=== PATIENT | female | born 1970 | race Caucasian/White ===

== ENCOUNTER 2018-05-16 15:23 | Emergency (ER) | payer BC ==
[2018-05-16 15:29] VITALS: BP 120/78; PULSE 67; TEMP 98.6; BMI 27.4
[2018-05-16] MEDS ORDERED: DIPHTH,PERTUSS(ACELL),TET 0.5 ML DISP.SYRIN IM ONE (15:43)
--- NOTE | 2018-05-16 15:48 | PDOC ---
History of Present Illness - General Chief Complaint: Laceration Stated Complaint: RT FINGER LACERATION Time Seen by Provider: 05/16/18 15:32 - History of Present Illness Initial Comments: 47-year-old female with a history of migraines on Topamax presents for evaluation after removing a piece of glass from her right second finger. She applied direct pressure controlled bleeding and came to the emergency room. She is not current on tetanus. 05/16/18 15:46 Past History - Past Medical History Allergies/Adverse Reactions: Allergies Allergy/AdvReac Type Severity Reaction Status Date / Time ibuprofen [From Advil] Allergy Swelling Verified 05/16/18 15:27 Home Medications: Ambulatory Orders Topiramate [Topamax] 25 mg PO DAILY 12/30/15 Psychiatric Problems: Yes - Surgical History Abdominal Surgery: Yes - Immunization History Td Vaccination: Yes - Suicide/Smoking/Psychosocial Hx Smoking Status: No Smoking History: Never smoked Have you smoked in the past 12 months: No Number of Cigarettes Smoked Daily: 0 Information on smoking cessation initiated: No Hx Alcohol Use: No Drug/Substance Use Hx: No Substance Use Type: None Hx Substance Use Treatment: No Review of Systems - Review of Systems Integumentary: Yes: See HPI All Other Systems: Reviewed and Negative *Physical Exam - Vital Signs Last Vital Signs Temp Pulse Resp BP Pulse Ox 98.6 F 67 18 120/78 100 05/16/18 15:25 05/16/18 15:25 05/16/18 15:25 05/16/18 15:25 05/16/18 15:25 - Physical Exam Comments: There is a small superficial excoriation on the radial aspect of the right second finger at the tip on the skin overlying the distal phalanx. There are no gross sensorimotor deficits in the finger she's neurovascularly intact. She has no sensitivity to the area. 05/16/18 15:46 ED Treatment Course - RADIOLOGY Radiology Studies Ordered: Category Date Time Status FINGER(S) RIGHT [RAD] Stat Radiology 05/16/18 15:43 Ordered Medical Decision Making - Medical Decision Making This wound does not have to be sutured it can be treated with dressing changes and a sterile Band-Aid multiple times a day and left open to air when she is not active. I'll get an x-ray to evaluate for a foreign body. And update her tetanus today. 05/16/18 15:47 05/16/18 15:53 Do not appreciate a radiopaque foreign body on radiograph today. *DC/Admit/Observation/Transfer Diagnosis at time of Disposition: Laceration - Discharge Dispostion Disposition: HOME Condition at time of disposition: Stable Decision to Admit order: No - Referrals Referrals: Mukund Robledo MD [Staff Physician] - - Patient Instructions Additional Instructions: Your wound does not require sutures. Your tetanus was updated today. Return to the emergency room should you experience any increased redness pain or swelling. In the meantime he can follow-up with hand surgery for further evaluation and treatment options. And water if your activity may put a Band-Aid over the area to protect it otherwise he may be left open to air. - Post Discharge Activity
== END 2018-05-16 15:55 | disposition home or self-care (01) ==
LOC: JERFT 15:23
PROC: 3E0234Z Introduction of Serum, Toxoid and Vaccine into Muscle, Percutaneous Approach (ICD-10-PCS; principal; 2018-05-16)
DX: S61.211A Laceration without foreign body of left index finger without damage to nail, initial encounter (principal); W25.XXXA Contact with sharp glass, initial encounter; Y93.89 Activity, other specified; Y92.038 Other place in apartment as the place of occurrence of the external cause; Y99.8 Other external cause status
CPT/HCPCS: 73140-TC-RT-FY; 90715; 99281-25

== ENCOUNTER 2018-09-02 18:44 | Emergency (ER) | payer BC ==
[2018-09-02 19:09] VITALS: BP 175/94; PULSE 80; TEMP 98.1; BMI 28.2
--- NOTE | 2018-09-02 19:10 | PDOC ---
Rapid Medical Evaluation Chief Complaint: Allergic Reaction Time Seen by Provider: 09/02/18 19:07 Medical Evaluation: Allergies Allergy/AdvReac Type Severity Reaction Status Date / Time ibuprofen [From Advil] Allergy Swelling Verified 05/16/18 15:27 09/02/18 19:08 I have performed a brief in person evaluation of this patient. The patient presents with a CC of:rash Pt is a 47 Yo female who complains of a "burning" rash on the right arm after taking augmentin on her own due to right ear and throat pain. She was prescribed the abx in July. She is not allergic to PCN. She denies tongue edema, wheezing. Denies taking Benadryl [employer]. PE: Skin: clear HEENT: no tongue edema or elevation. No throat edema. Lungs: Clear Heart: RRR MS: Moves all extremities without difficulty. Psych: Age appropriate. The patient will proceed to [facility] for further evaluation. Discharge Disposition - Diagnosis Allergic reaction Qualifiers: Encounter type: initial encounter Qualified Code(s): T78.40XA - Allergy, unspecified, initial encounter - Referrals - Patient Instructions - Post Discharge Activity
--- NOTE | 2018-09-02 20:27 | PDOC ---
History of Present Illness - General Chief Complaint: Allergic Reaction Stated Complaint: ALLERGIC REACTION Time Seen by Provider: 09/02/18 19:07 History Source: Patient Exam Limitations: No Limitations - History of Present Illness Initial Comments: See HPI from my RME assessment 09/02/18 20:24 Past History - Travel Traveled outside of the country in the last 30 days: No Close contact w/someone who was outside of country & ill: No - Past Medical History Allergies/Adverse Reactions: Allergies Allergy/AdvReac Type Severity Reaction Status Date / Time ibuprofen [From Advil] Allergy Swelling Verified 09/02/18 19:10 Home Medications: Ambulatory Orders Topiramate [Topamax] 25 mg PO DAILY 12/30/15 COPD: No Psychiatric Problems: Yes Other medical history: MIGRAINES - Surgical History Abdominal Surgery: Yes - Immunization History Td Vaccination: Yes - Suicide/Smoking/Psychosocial Hx Smoking Status: No Smoking History: Never smoked Have you smoked in the past 12 months: No Number of Cigarettes Smoked Daily: 0 Hx Alcohol Use: No Drug/Substance Use Hx: No Substance Use Type: None Hx Substance Use Treatment: No Review of Systems - Review of Systems Able to Perform ROS?: Yes Constitutional: No: Chills, Fever HEENTM: No: Throat Pain, Difficulty Swallowing, Mouth Swelling Respiratory: No: Cough, Wheezing All Other Systems: Reviewed and Negative *Physical Exam - Vital Signs Last Vital Signs Temp Pulse Resp BP Pulse Ox 98.1 F 80 18 175/94 H 100 09/02/18 19:07 09/02/18 19:07 09/02/18 19:07 09/02/18 19:07 09/02/18 19:07 - Physical Exam Comments: Constitutional: VS stated, pt appears in no apparent distress; sitting in chair. Skin: Warm and dry. No rash visualized. Head: Normocephalic; atraumatic Eyes: conjunctiva pink without injection or discharge. Nose: Patent, mucosa pink. No drainage. Throat: Oropharynx with pink and moist mucosa. Dentition good. No pharyngeal edema; erythema or exudate. Tongue normal, no fasciculations. Airway Patent. Hypoglossal area is soft. Uvula is midline. No trismus. Neck: Supple, non-tender, with full ROM, trachea midline, no anterior/posterior cervical chain lymphadenopathy, thyroid nonpalpable. No stridor or bruits. Lungs : Bilateral breath sounds clear upon auscultation. No adventitious breath sounds. Heart: Regular rate and rhythm, S1/S2 auscultated. No murmurs, rubs, or gallops. No visible pulsations, heaves, or lifts on precordium. Musculoskeletal: Moves all extremities without difficulty. Neurologic: Awake, alert. Conversation fluent. Psych: Appropriate affect. 09/02/18 20:25 Medical Decision Making - Medical Decision Making Pt has no signs of anaphylaxis. Pt is driving I cannot give her a Benadryl. No rash visualized. 09/02/18 20:27 *DC/Admit/Observation/Transfer Diagnosis at time of Disposition: Allergic reaction Qualifiers: Encounter type: initial encounter Qualified Code(s): T78.40XA - Allergy, unspecified, initial encounter - Discharge Dispostion Disposition: HOME Condition at time of disposition: Stable Decision to Admit order: No - Referrals - Patient Instructions Printed Discharge Instructions: DI for Adverse Drug Reaction -- Allergic - Post Discharge Activity
== END 2018-09-02 20:37 | disposition home or self-care (01) ==
LOC: JERFT 18:44
DX: T36.0X5A Adverse effect of penicillins, initial encounter (principal); L27.0 Generalized skin eruption due to drugs and medicaments taken internally; Y92.038 Other place in apartment as the place of occurrence of the external cause
CPT/HCPCS: 99281-25

== ENCOUNTER 2021-09-17 19:04 | Emergency (ER) | payer BC ==
[2021-09-17 19:11] VITALS: TEMP 98.1; BMI 30.2
[2021-09-17] MEDS ORDERED: amLODIPine BESYLATE 5 MG TABLET (FP) PO ONE (21:59)
[2021-09-17] MEDS ORDERED: amLODIPine BESYLATE 5 MG TABLET (FP) ONE (22:04)
[2021-09-17 22:27] LABS: BASO % 1.1 % (0-2.0); EOS % 3.7 % (0-4.5); HEMATOCRIT 37.5 % (32.4-45.2); HEMOGLOBIN 13.1 GM/dL (10.7-15.3); LYMPH % 34.4 % (8-40); MCH 29.8 pg (25.7-33.7); MCHC 34.9 g/dl (32.0-36.0); MEAN CELL VOLUME 85.2 fl (80-96); MONO % 7.4 % (3.8-10.2); NEUT % 53.4 % (42.8-82.8); PLATELET COUNT 319 10^3/uL (134-434); RDW 12.7 % (11.6-15.6); WHITE BLOOD COUNT 6.1 K/mm3 (4.0-10.0)
[2021-09-17 22:48] LABS: CHLORIDE 106 mmol/L (98-107); SODIUM 139 mmol/L (136-145)
[2021-09-17 22:49] LABS: CALCIUM 9.2 mg/dL (8.5-10.1)
[2021-09-17 22:50] LABS: ALBUMIN 3.8 g/dl (3.4-5.0); ANION GAP 6 MMOL/L (8-16); BLOOD UREA NITROGEN 14.1 mg/dL (7-18); CO2 28 mmol/L (21-32); GLUCOSE,RANDOM 96 mg/dL (74-106)
[2021-09-17 22:53] LABS: CREATININE 0.9 mg/dL (0.55-1.3); SGOT/AST 20 U/L (15-37); SGPT/ALT 29 U/L (13-61)
[2021-09-17 22:55] LABS: BILIRUBIN,TOTAL 0.3 mg/dL (0.2-1); TOT PROT 7.4 g/dl (6.4-8.2)
[2021-09-17 22:56] LABS: ALK PHOS 110 U/L (45-117)
[2021-09-17 23:55] VITALS: BP 132/99; PULSE 69
== END 2021-09-17 23:55 | disposition home or self-care (01) ==
LOC: JER 19:04
DX: R07.9 Chest pain, unspecified (principal)
CPT/HCPCS: 36415; 71046-TC-FY; 80053; 84484; 85025; 93005; 93010; 99284-25

== ENCOUNTER 2023-10-28 14:35 | Emergency (ER) | payer BC ==
[2023-10-28 15:06] VITALS: BP 106/79; PULSE 68; RESP 16; TEMP 98; BMI 25.3
[2023-10-28] MEDS ORDERED: LIDOCAINE HCL 2% JELLY (30 ML/TUBE) TP ONE (15:08)
[2023-10-28] MEDS ORDERED: LIDOCAINE 2.5%/PRILOCAINE 2.5% (5 Gram/TUBE) TP ONE (15:15)
[2023-10-28] MEDS ORDERED: LORazepam 2 MG TABLET PO ONE (15:36)
[2023-10-28] MEDS ORDERED: LORazepam 0.5 MG TABLET ONE (15:41)
== END 2023-10-28 16:41 | disposition home or self-care (01) ==
LOC: FER 14:35
DX: K64.4 Residual hemorrhoidal skin tags (principal)
CPT/HCPCS: 99283-25

== ENCOUNTER 2023-11-08 15:19 | Emergency (ER) | payer BC, OTHER ==
[2023-11-08] MEDS ORDERED: LIDOCAINE HCL 2% JELLY 10 ML CARTRIDGE PR ONE (15:37)
[2023-11-08 15:43] VITALS: BP 147/95; PULSE 118; RESP 20; TEMP 98.5; BMI 25.2
[2023-11-08] MEDS ORDERED: diazePAM CARPU-JECT 10 MG/2 ML DISP.SYRIN IVPUSH ONE (15:57)
[2023-11-08] MEDS ORDERED: diazePAM CARPU-JECT 10 MG/2 ML DISP.SYRIN ONE (15:59)
[2023-11-08 16:32] LABS: HEMATOCRIT 37.5 % (32.4-45.2); HEMOGLOBIN 13.1 G/dL (10.7-15.3); MCH 30.3 pg (25.7-33.7); MCHC 34.8 g/dl (32.0-36.0); MEAN CELL VOLUME 87.1 fl (80-96); MEAN PLT VOLUME 8.5 fl (7.5-11.1); PLATELET COUNT 391.1 10^3/uL (134-434); RDW 13.8 % (11.6-15.6)
[2023-11-08 16:46] LABS: ALBUMIN 4.8 g/dl (3.4-5.0); BILIRUBIN,TOTAL 0.4 mg/dl (0.2-1); CALCIUM 9.8 mg/dl (8.5-10.1); CREATININE 1.1 mg/dl (0.6-1.3); POTASSIUM 3.8 mmol/L (3.5-5.1); TOT PROT 7.7 g/dl (6.4-8.2)
[2023-11-08] MEDS ORDERED: morphine CARPU-JECT 4 MG/1 ML DISP.SYRIN IVPUSH ONE (17:53)
[2023-11-08] MEDS ORDERED: ACETAMINOPHEN 1000 MG/100 ML BAG IVPB ONE (17:53)
[2023-11-08] MEDS ORDERED: ACETAMINOPHEN INJECTION 100 ML IVPB ONE (18:08)
[2023-11-08] MEDS ORDERED: morphine SULFATE 4 MG/ML VIAL ONE (18:08)
== END 2023-11-08 19:30 | disposition home or self-care (01) ==
LOC: FER 15:19
PROC: 3E033NZ Introduction of Analgesics, Hypnotics, Sedatives into Peripheral Vein, Percutaneous Approach (ICD-10-PCS; principal; 2023-11-08)
PROC: 3E033GC Introduction of Other Therapeutic Substance into Peripheral Vein, Percutaneous Approach (ICD-10-PCS; 2023-11-08)
PROC: 3E033GC Introduction of Other Therapeutic Substance into Peripheral Vein, Percutaneous Approach (ICD-10-PCS; 2023-11-08)
DX: K60.2 Anal fissure, unspecified (principal); K62.89 Other specified diseases of anus and rectum
CPT/HCPCS: 36415; 80053; 85027; 99284-25

== ENCOUNTER 2023-11-11 10:20 | Emergency (ER) | payer BC, OTHER ==
[2023-11-11 10:28] VITALS: BP 135/87; PULSE 82; RESP 16; TEMP 98.2; BMI 25.2
[2023-11-11] MEDS ORDERED: morphine CARPU-JECT 4 MG/1 ML DISP.SYRIN IM ONE (10:35)
[2023-11-11] MEDS ORDERED: morphine SULFATE 4 MG/ML VIAL ONE ×2 (10:36→11:48)
[2023-11-11] MEDS ORDERED: LORazepam 0.5 MG TABLET ONE (11:16)
[2023-11-11] MEDS ORDERED: LORazepam 1 MG TABLET PO ONE (11:16)
[2023-11-11] MEDS ORDERED: morphine CARPU-JECT 4 MG/1 ML DISP.SYRIN IVPUSH ONE (11:33)
[2023-11-11 11:59] LABS: HEMATOCRIT 35.7 % (32.4-45.2); HEMOGLOBIN 12.7 G/dL (10.7-15.3); MCH 30.9 pg (25.7-33.7); MCHC 35.5 g/dl (32.0-36.0); MEAN CELL VOLUME 86.8 fl (80-96); MEAN PLT VOLUME 8.5 fl (7.5-11.1); PLATELET COUNT 326.4 10^3/uL (134-434); RBC 4.11 10^6/uL (3.60-5.2); RDW 13.4 % (11.6-15.6); WHITE BLOOD COUNT 7.4 10^3/uL (4.0-10.8)
[2023-11-11 12:26] LABS: ALBUMIN 4.4 g/dl (3.4-5.0); BILIRUBIN,TOTAL 0.3 mg/dl (0.2-1); CALCIUM 9.7 mg/dl (8.5-10.1); CREATININE 0.9 mg/dl (0.6-1.3); POTASSIUM 3.9 mmol/L (3.5-5.1)
[2023-11-11 12:39] LABS: EPITHELIAL CELLS 0-5 /hpf
[2023-11-11 12:45] LABS: PLATELET ESTIMATE ADEQUATE
[2023-11-11] MEDS ORDERED: LORazepam 2 MG/ML SDV VIAL IVPUSH STA (13:41)
[2023-11-11] MEDS ORDERED: ACETAMINOPHEN 1000 MG/100 ML BAG IVPB ONE (13:41)
[2023-11-11] MEDS ORDERED: ACETAMINOPHEN INJECTION 100 ML IVPB ONE (13:44)
== END 2023-11-11 15:40 | disposition home or self-care (01) ==
LOC: FER 10:20
PROC: 3E033NZ Introduction of Analgesics, Hypnotics, Sedatives into Peripheral Vein, Percutaneous Approach (ICD-10-PCS; principal; 2023-11-11)
PROC: 3E033GC Introduction of Other Therapeutic Substance into Peripheral Vein, Percutaneous Approach (ICD-10-PCS; 2023-11-11)
PROC: 3E033GC Introduction of Other Therapeutic Substance into Peripheral Vein, Percutaneous Approach (ICD-10-PCS; 2023-11-11)
PROC: 3E023GC Introduction of Other Therapeutic Substance into Muscle, Percutaneous Approach (ICD-10-PCS; 2023-11-11)
DX: K62.89 Other specified diseases of anus and rectum (principal); K60.2 Anal fissure, unspecified; K64.4 Residual hemorrhoidal skin tags
CPT/HCPCS: 36415; 72193-TC; 80053; 81003; 81015; 85027; 87086; 99285-25; Q9967